=== PATIENT | male | born 1995 ===

== ENCOUNTER 2018-07-18 03:25 | Emergency (ER) | payer BC ==
[2018-07-18] MEDS ORDERED: LIDOCAINE 1% INJ-PF (10 MG/ML) 30 ML SDV INJ ONE (03:44)
--- NOTE | 2018-07-18 04:31 | RADIOLOGY REPORT (SQ) ---
EXAM DESCRIPTION: XR HAND 3 OR MORE VIEWS COMPLETED DATE/TME: 07/18/2018 03:44 CLINICAL HISTORY: 23 years, Male, LACERATION 4/5TH DIGITS, EVAL FOR FB COMPARISON: None. NUMBER OF VIEWS: Four TECHNIQUE: Four views of the left hand LIMITATIONS: None. FINDINGS: There is no acute fracture or dislocation. No large soft tissue swelling. The joint spaces are preserved. No radiopaque foreign body. IMPRESSION: No radiopaque foreign body. 2011 [employer]- All Rights Reserved
[2018-07-18 05:15] VITALS: BP 131/81
--- NOTE | 2018-07-18 05:40 | ER Document Report ---
ED Wound - General Chief Complaint: Laceration Stated Complaint: LEFT PINKY/RING FINGER LACERATION Time Seen by Provider: 07/18/18 03:39 Mode of Arrival: Ambulatory Information source: Patient Notes: Patient is a 23-year-old male who presents with chief complaint of laceration to his left hand. Patient reports that he punched a coffee pot. Patient has a 1 cm laceration to his left fourth digit and a 1 cm laceration to his left fifth digit. These are both well approximated, superficial and no active bleeding is noted. Patient reports that his tetanus was within the last 2-3 years. Past Medical History - General Information source: Patient - Social History Smoking Status: Current Every Day Smoker Frequency of alcohol use: Social Family History: Reviewed & Not Pertinent Patient has suicidal ideation: No Patient has homicidal ideation: No - Medical History Medical History: Negative Renal/ Medical History: Denies: Hx Peritoneal Dialysis Surgical Hx: Negative Review of Systems - Review of Systems Musculoskeletal: See HPI Skin: See HPI -: Yes All other systems reviewed and negative Physical Exam - Vital signs Vitals: Temp Pulse Resp BP Pulse Ox 97.6 F 72 15 131/81 H 100 07/18/18 03:48 07/18/18 03:48 07/18/18 03:48 07/18/18 03:48 07/18/18 03:48 - Notes Notes: PHYSICAL EXAMINATION: GENERAL: Well-appearing, well-nourished and in no acute distress. HEAD: Atraumatic, normocephalic. EYES: Pupils equal round extraocular movements intact, conjunctiva are normal. ENT: Nares patent NECK: Normal range of motion LUNGS: No respiratory distress Musculoskeletal: Normal range of motion NEUROLOGICAL: Normal speech, normal gait. PSYCH: Flat affect, appears angry. SKIN: Warm, Dry, normal turgor, no rashes or lesions noted. 1 cm laceration to left fifth digit, 1 cm laceration to left fourth digit. Wounds are well approximated, superficial and there is no active bleeding. Cap refill less than 3 seconds, normal motor and sensation distal to area of concern. Course - Re-evaluation Re-evalutation: Patient was sent for an x-ray to rule out foreign body due to mechanism of injury. Suture setup ordered. No evidence of any radiopaque foreign body noted on the x-ray. Patient stormed out of the emergency department without being sutured despite charge nurse attempts to get patient to stay for sutures. Patient states he is angry because he needs to go smoke. - Vital Signs Vital signs: Temp Pulse Resp BP Pulse Ox 97.6 F 72 15 131/81 H 100 07/18/18 03:48 07/18/18 03:48 07/18/18 03:48 07/18/18 03:48 07/18/18 03:48 Discharge - Discharge Clinical Impression: Laceration Condition: Stable Disposition: ELOPED
== END 2018-07-18 05:33 | disposition left against medical advice (07) ==
LOC: ER 03:25
DX: S61.217A Laceration without foreign body of left little finger without damage to nail, initial encounter (principal); S61.215A Laceration without foreign body of left ring finger without damage to nail, initial encounter; W25.XXXA Contact with sharp glass, initial encounter; F17.210 Nicotine dependence, cigarettes, uncomplicated
CPT/HCPCS: 99281

== ENCOUNTER 2018-07-18 08:24 | Emergency (ER) | payer BC ==
[2018-07-18 08:29] VITALS: BP 110/63
[2018-07-18] MEDS ORDERED: LIDOCAINE 1% INJ-PF (10 MG/ML) 30 ML SDV INJ ONE (08:46)
[2018-07-18] MEDS ORDERED: DIPH/PERTUSS(ACELL)/TETANUS VAC/PF 0.5 ML SYR (>=10YO) IM ONE (08:46)
[2018-07-18] MEDS ORDERED: HYDROCODONE/ACETAMINOPHEN 5-325 MG TABLET PO ONE (08:46)
--- NOTE | 2018-07-18 10:02 | RADIOLOGY REPORT (SQ) ---
EXAM DESCRIPTION: HAND BILATERAL 3 VIEWS COMPLETED DATE/TIME: 07/18/2018 9:23 am REASON FOR STUDY: punched glass L hand, tree fell on r hand COMPARISON: 07/18/2018. EXAM PARAMETERS: NUMBER OF VIEWS: Three views right hand. Three views left hand. TECHNIQUE: AP, lateral and oblique radiographic images acquired of bilateral hands. LIMITATIONS: None. FINDINGS: RIGHT HAND: MINERALIZATION: Normal. BONES: Fracture of the distal 5th metacarpal with volar angulation. No worrisome bone lesions. JOINTS: No erosions. No noa-articular osteopenia. No chondrocalcinosis. SOFT TISSUES: No swelling. No calcifications. OTHER: No other significant finding. LEFT HAND: MINERALIZATION: Normal. BONES: No acute fracture or dislocation. No worrisome bone lesions. JOINTS: No erosions. No noa-articular osteopenia. No chondrocalcinosis. SOFT TISSUES: No swelling. No calcifications. OTHER: No other significant finding. IMPRESSION: FRACTURE OF THE DISTAL 5TH METACARPAL OF THE RIGHT HAND WITH VOLAR ANGULATION. NO SIGNI FICANT RADIOGRAPHIC FINDINGS IN THE LEFT HAND. TECHNICAL DOCUMENTATION: JOB ID: [id number] [employer]- All Rights Reserved Reading location - IP/workstation name: [email or web address]
--- NOTE | 2018-07-18 10:37 | ER Document Report ---
HPI - HPI Patient complains to provider of: Finger laceration Onset: This morning - Just after midnight Onset/Duration: Persistent Quality of pain: Achy Pain Level: 4 Context: Patient presents stating that he punched a glass coffee jar shortly after midnight. Patient with lacerations to the left fourth and fifth finger. Patient is right-hand dominant. Patient does report that about 4 days ago he had a tree fall on his right hand and was seen at an urgent care. Patient states that the urgent care then later called to inform him that he did have a boxer fracture and patient is wondering if we can cast his injury today. Patient without any splint in place at this time. Associated Symptoms: Other - Lateral hand injuries Exacerbated by: Movement Relieved by: Denies Similar symptoms previously: No Recently seen / treated by doctor: Yes - ROS ROS below otherwise negative: Yes Systems Reviewed and Negative: Yes All other systems reviewed and negative - NEURO Neurology: DENIES: Weakness - MUSCULOSKELETAL Musculoskeletal: REPORTS: Extremity pain - DERM Skin Color: Normal Skin Problems: Laceration Past Medical History - General Information source: Patient - Social History Smoking Status: Current Every Day Smoker Chew tobacco use (# tins/day): No Smoking Education Provided: Yes Frequency of alcohol use: Occasional Drug Abuse: None Occupation: Remodeling Lives with: Spouse/Significant other Family History: Reviewed & Not Pertinent Patient has suicidal ideation: No Patient has homicidal ideation: No - Medical History Medical History: Negative Renal/ Medical History: Denies: Hx Peritoneal Dialysis Surgical Hx: Negative Vertical Provider Document - CONSTITUTIONAL Agree With Documented VS: Yes Exam Limitations: No Limitations General Appearance: WD/WN, No Apparent Distress - INFECTION CONTROL TRAVEL OUTSIDE OF THE [place] IN LAST 30 DAYS: No - HEENT HEENT: Atraumatic, Normocephalic - NECK Neck: Normal Inspection, Supple - RESPIRATORY Respiratory: Breath Sounds Normal, No Respiratory Distress - CARDIOVASCULAR Cardiovascular: Regular Rate, Regular Rhythm Pulses: Normal: Radial - MUSCULOSKELETAL/EXTREMETIES Musculoskeletal/Extremeties: MAEW, Tender - Right hand tenderness over fifth metacarpal with mild swelling. - NEURO Level of Consciousness: Awake, Alert, Appropriate Motor/Sensory: No Motor Deficit, No Sensory Deficit Notes: No tendon deficit - DERM Integumentary: Warm, Dry, Laceration - Laceration x2 to dorsal aspect of left fourth and fifth fingers. No tendon deficit. Course - Vital Signs Vital signs: Temp Pulse Resp BP Pulse Ox 98.4 F 77 14 110/63 98 07/18/18 08:27 07/18/18 08:27 07/18/18 08:27 07/18/18 08:27 07/18/18 08:27 - Diagnostic Test Radiology reviewed: Image reviewed, Reports reviewed Procedures - Immobilization Right Hand Pre-Proc Neuro Vasc Exam: Normal Immobilizer type: Ulnar Performed by: PCT Post-Proc Neuro Vasc Exam: Normal Alignment checked and good: Yes - Laceration/Wound Repair Left Finger 4th digit Wound length (cm): 1.2 Wound's Depth, Shape: Flap Anesthetic type: 1% Lidocaine Wound explored: Clean Wound Repaired With: Sutures Suture Size/Type: 5:0, Nylon Number of Sutures: 3 Post-procedure wound care: Sterile dressing applied Post-procedure NV exam normal: Yes Complications: No Hands back picture: 1 - lac 2 - lac Discharge - Discharge Clinical Impression: Laceration of finger Qualifiers: Encounter type: initial encounter Finger: unspecified finger Damage to nail status: without damage Foreign body presence: without foreign body Laterality: left Qualified Code(s): S61.219A - Laceration without foreign body of unspecified finger without damage to nail, initial encounter Boxers fracture Qualifiers: Encounter type: initial encounter Fracture type: closed Qualified Code(s): S62.339A - Displaced fracture of neck of unspecified metacarpal bone, initial encounter for closed fracture Condition: Stable Disposition: HOME, SELF-CARE Instructions: Fractured Fifth Metacarpal ([facility]), Ice & Elevation ([facility]), Laceration Care ([facility]), Prophylactic Antibiotic ([facility]), Splint Precautions ([facility]), Tetanus Immunization Given ([facility]) Additional Instructions: Return immediately for any new or worsening symptoms Followup with your primary care provider, call tomorrow to make a followup appointment Follow-up with orthopedics for further evaluation, call Friday for an appointment Suture removal in 11 days Prescriptions: Cephalexin Monohydrate [Keflex 500 mg Capsule] 500 mg PO Q6H 5 Days capsule Naproxen [Naprosyn 250 Nmg Tablet] 1 tab PO BID #14 tablet Forms: Smoking Cessation Education, Return to Work Referrals: APOLINAR UNDERWOOD DO [ACTIVE STAFF] - 07/20/18
[2018-07-18] MEDS ORDERED: CEPHALEXIN 500 MG CAPSULE PO ONE (10:38)
== END 2018-07-18 11:05 | disposition home or self-care (01) ==
LOC: ER 08:24
DX: S61.217A Laceration without foreign body of left little finger without damage to nail, initial encounter (principal); S61.215A Laceration without foreign body of left ring finger without damage to nail, initial encounter; S62.339A Displaced fracture of neck of unspecified metacarpal bone, initial encounter for closed fracture; W25.XXXA Contact with sharp glass, initial encounter; W20.8XXA Other cause of strike by thrown, projected or falling object, initial encounter; Z23 Encounter for immunization
CPT/HCPCS: 99283; 73130; 90715; 12001; 29125; J3490